=== PATIENT | male | born 1960 | race Caucasian/White ===

== ENCOUNTER → 2020-02-28 | Outpatient (CLI) | payer OTHER ==
[~2020-02-28] MED LIST: B COMPLEX1 EACH PO; CALCIUM CITRAT1 EA10 PO; COQ1050 MG PO; COUMADIN7.5 MG PO; FISH OIL 1,0001 EAC9 PO; GLUCOSAMINE &1 EACH PO; LIPITOR10 MG PO; MULTIVITAMINS1 EAC7 PO; OMEPRAZOLE 20 M20 M1 PO; TIZANIDINE HCL2 M1 PO; TRIAMTERENE/HCT1 CA1 PO; TYLENOL WITH CO1 TA1 PO; VITAMIN C250 M1 PO
== END ==
LOC: M.PC 08:15
PROVIDERS: ATTEND Physical Medicine & Rehabilitation
DX: M43.17 Spondylolisthesis, lumbosacral region (principal); M51.06 Intervertebral disc disorders with myelopathy, lumbar region; M51.16 Intervertebral disc disorders with radiculopathy, lumbar region; M48.061 Spinal stenosis, lumbar region without neurogenic claudication; M41.86 Other forms of scoliosis, lumbar region; M47.26 Other spondylosis with radiculopathy, lumbar region; M79.605 Pain in left leg